=== PATIENT | female | born 1950 | race African-American/Black ===

== ENCOUNTER 2024-05-29 13:11 | Outpatient (CLI) | payer MEDICARE, MEDICAID, SELFPAY ==
--- NOTE | ~2024-05-29 | XR_ITS ---
EXAMINATION: XR lg joint inject/asp w image, XR lg joint inject/asp add DATE: 05/29/2024 14:34 INDICATION: Bilateral shoulder pain TECHNIQUE: A time-out was performed to verify the patient's name, date of , and procedure to b e performed. The procedure including the risks, benefits, and alternatives was discussed with the pat ient. Risks discussed included bleeding and infection. The patient understood the risks and agreed to proceed. Attention was first turned to the right glenohumeral joint. The skin overlying the rotator cuff interval of the right glenohumeral joint was prepped and draped in usual sterile fashion. Anest hetic was administered with 1% lidocaine subcutaneously. A 22 G needle was advanced under fluoroscop ic guidance into the joint. Injection of 1 mL of Omnipaque 240 confirmed intra-articular position of the needle. Subsequently, injectate consisting of 5 mm a 4:1 mixture of 1% lidocaine: 80 mg/mL Depo -Medrol for a total dosage of 80 mg Depo-Medrol was instilled. Washout of contrast was seen confirmin g intra-articular administration. The needle was removed and the entry site was cleaned and dressed. Attention was then turned to the left glenohumeral joint. The skin overlying the rotator cuff interva l of the left glenohumeral joint was prepped and draped in usual sterile fashion. Anesthetic was adm inistered with 1% lidocaine subcutaneously. A 22 G needle was advanced under fluoroscopic guidance i nto the joint. Injection of 1 mL of Omnipaque 240 confirmed intra-articular position of the needle. Subsequently, injectate consisting of 5 mm a 4:1 mixture of 1% lidocaine: 80 mg/mL Depo-Medrol for a total dosage of 80 mg Depo-Medrol was instilled. Washout of contrast was seen confirming intra-artic ular administration. The needle was removed and the entry site was cleaned and dressed. There were no immediate complications. Fluoroscopy exposure time for the combined procedures was 0.2 minutes. The total number of images was 4. Total DAP was 0.898 Gycm^2 FINDINGS: Real-time fluoroscopy demonstrates the needle and injected contrast initially in the right glenohumeral joint and subsequently in the left glenohumeral joint. Patient's pain prior to procedure :10/10. Patient's pain following the procedure: 0/10. IMPRESSION: 1. Successful left glenohumeral injection of local anesthetic and steroid with decrease in the patien t's presenting pain. 2. Successful right glenohumeral injection of local anesthetic and steroid with decrease in the patie nt's presenting pain. Reviewed, dictated and finalized at location A. IMPRESSION: 1. Successful left glenohumeral injection of local anesthetic and steroid with decrease in the patient's presenting pain. 2. Successful right glenohumeral injection of local anesthetic and steroid with decrease in the patient's presenting pain.
== END 2024-05-29 13:12 | disposition home or self-care (01) ==
PROVIDERS: Visit Provider Physician Assistant Surgical
DX: M25.511 Pain in right shoulder (principal); M25.512 Pain in left shoulder
CPT/HCPCS: 20610; 77002; J1010; Q9966

== ENCOUNTER 2024-09-29 08:50 | Outpatient (CLI) | payer MEDICARE, MEDICAID, SELFPAY ==
--- NOTE | ~2024-09-29 | XR_ITS ---
EXAMINATION: XR lg joint inject/asp w image DATE: 09/29/2024 11:01 INDICATION: Right shoulder osteoarthritis and pain. TECHNIQUE: A time-out was performed to verify the patient's name, date of , and procedure to b e performed. The procedure including the risks, benefits, and alternatives was discussed with the pat ient. Risks discussed included bleeding and infection. The patient understood the risks and agreed to proceed. The skin overlying the right glenohumeral joint was prepped and draped in usual sterile fa shion. Anesthetic was administered with 1% lidocaine subcutaneously. A 22 G needle was advanced und er fluoroscopic guidance into the joint. Subsequently, injectate consisting of 4 mL 1% lidocaine and 1 mL 80 mg/mL Depo-Medrol was instilled. The needle was removed and the entry site was cleaned and dressed. There were no immediate complications. Fluoroscopy exposure time was 0.0 minutes. The total number of images was 1. FINDINGS: Real-time fluoroscopy demonstrates the needle in the right glenohumeral joint. Patient's pa in prior to procedure:08/27. Patient's pain following the procedure: 11/27. IMPRESSION: 1. Fluoroscopy guided right glenohumeral joint injection of local anesthetic and steroid with decreas e in the patient's presenting pain. Reviewed, dictated and finalized at location A. ER SORTING MACHINE OPERATOR IMPRESSION: 1. Fluoroscopy guided right glenohumeral joint injection of local anesthetic an d steroid with decrease in the patient's presenting pain.
--- NOTE | ~2024-09-29 | XR_ITS ---
EXAMINATION: XR lg joint inject/asp add DATE: 09/29/2024 11:04 INDICATION: Left shoulder osteoarthritis and pain. TECHNIQUE: A time-out was performed to verify the patient's name, date of , and procedure to b e performed. The procedure including the risks, benefits, and alternatives was discussed with the pat ient. Risks discussed included bleeding and infection. The patient understood the risks and agreed to proceed. The skin overlying the left glenohumeral joint was prepped and draped in usual sterile fas hion. Anesthetic was administered with 1% lidocaine subcutaneously. A 22 G needle was advanced unde r fluoroscopic guidance into the joint. Subsequently, injectate consisting of 4 mL 1% lidocaine and 1 mL 80 mg/mL Depo-Medrol was instilled. The needle was removed and the entry site was cleaned and d ressed. There were no immediate complications. Fluoroscopy exposure time was 0.0 minutes. The total number of images was 1. FINDINGS: Real-time fluoroscopy demonstrates the needle in the left glenohumeral joint. Patient's conrado n prior to procedure:07/28. Patient's pain following the procedure: 11/27. IMPRESSION: 1. Fluoroscopy guided left glenohumeral joint injection of local anesthetic and steroid with decrease in the patient's presenting pain. Reviewed, dictated and finalized at location A. VERY HELPER
== END 2024-09-29 08:51 | disposition home or self-care (01) ==
PROVIDERS: Visit Provider Physician Assistant Surgical
DX: M19.011 Primary osteoarthritis, right shoulder (principal); M19.012 Primary osteoarthritis, left shoulder
CPT/HCPCS: 20610; 77002; J1010; J2003

== ENCOUNTER 2025-02-19 13:45 | Outpatient (CLI) | payer MEDICARE, MEDICAID, SELFPAY ==
--- NOTE | ~2025-02-19 | XR_ITS ---
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 The procedure including the risks, benefits, and alternatives was discussed with the pat ient. Risks discussed included bleeding and infection. The patient understood the risks and agreed to proceed. Attention was first turned to the left shoulder. The skin overlying the left glenohumeral j oint was prepped and draped in usual sterile fashion. Anesthetic was administered with 1% lidocaine subcutaneously. A 22 G needle was advanced under fluoroscopic guidance into the joint. Injection of 2 mL of Omnipaque 240 confirmed intra-articular position of the needle. Subsequently, injectate con sisting of 5 mm a 4:1 mixture of 1% lidocaine: 80 mg/mL Depo-Medrol for a total dosage of 80 mg Depo- Medrol was instilled. Washout of contrast was seen confirming intra-articular administration. The nee dle was removed and the entry site was cleaned and dressed. Attention was then turned to the right shoulder. The skin overlying the right glenohumeral joint was prepped and draped in usual sterile fashion. Anesthetic was administered with 1% lidocaine subcutane ously. A 22 G needle was advanced under fluoroscopic guidance into the joint. Injection of 2 mL of Omnipaque 240 confirmed intra-articular position of the needle. Subsequently, injectate consisting o f 5 mm a 4:1 mixture of 1% lidocaine: 80 mg/mL Depo-Medrol for a total dosage of 80 mg Depo-Medrol wa s instilled. Washout of contrast was seen confirming intra-articular administration. The needle was r emoved and the entry site was cleaned and dressed. There were no immediate complications. Fluoroscopy exposure time for both procedures was 0.9 minutes. The total number of images was 5. FINDINGS: Real-time fluoroscopy demonstrates the needle and contrast in the first the left glenohumer al joint and subsequently the right humeral joint. Patient's pain prior to procedure:10/10. Patient' s pain following the procedure: 5/10. IMPRESSION: 1. Successful left glenohumeral joint injection of local anesthetic and steroid with decrease in the patient's presenting pain. 2. Successful right glenohumeral joint injection of local anesthetic and steroid with decrease in the patient's presenting pain. Reviewed, dictated and finalized at location A. IMPRESSION: 1. Successful left glenohumeral joint injection of local anesthetic and steroid with decrease in the patient's presenting pain. 2. Successful right glenohumeral joint injection of local anesthetic and steroi d with decrease in the patient's presenting pain.
--- OUTSIDE RECORDS SUMMARY | 2025-02-19 13:53 | XMS_ITS | CONTINUITY OF CARE DOCUMENT ---
Author Name tigre landeros Address Unknown Organization [facility] Address [address] [place] [address] Phone [phone] Care Team Providers Care Production Sanitizer Name Role Phone Skylar Webber MD Unavailable [phone] Gadiel Vegas MD Unavailable Gadiel Vegas MD Unavailable [phone] PROBLEMS Condition Status Date Provider Notes Cardiology examination active Liz clark MD HYPERTENSION active Liz Mandujano MD CHF - diastolic active Liz Mandujano MD Preop cardiovasc. examination active Roberto Mandujano MD Shortness of breath active Liz Mandujano MD DYSPNEA ON EXERTION active Liz Mandujano MD Sleep apnea, obstructive active Lauryn montgomery HARDBOARD SUPERVISOR ENCOUNTERS Date Type Provider Location Encounter Diag nosis - In-person encounter Office Visit Liz Mandujano MD [facility] Sleep apnea, obstructive - In-person encounter Office Visit Liz Mandujano MD [facility] Shortness of breathDYSPNEA ON EXERTION - In-person encounter Office Visit Liz Mandujano MD [facility] Cardiology examinationHYPERTENSIONCHF - diastolicPreop cardiovasc. examination VITAL SIGNS Date Observation Value Provider Body Mass Index (Ratio) 45.83 kg/m2 Larry Mandujano MD blood pressure, diastolic 79 mm[Hg] Ri alda Blanton blood pressure, systolic 158 mm[Hg] Baldomero parveen Blanton blood pressure, cuff size large Ri alda Blanton oxygen saturation, oximetry 99 % Jany Blanton respiratory rate E&M 16 /min Gladis Blanton pulse rate 56 /min Jany Correia son weight E&M 267 [lb_av] Jany Correia son height E&M 64 [in_i] Jany Correia son Body Mass Index (Ratio) 45.31 kg/m2 Larry Mandujano MD blood pressure, diastolic 89 mm[Hg] Lara nkLogic blood pressure, systolic 229 mm[Hg] Penny kLogic blood pressure, cuff size large Ke rri Gruenenfelder blood pressure, diastolic 89 mm[Hg] Ke rri Gruenenfelder blood pressure, systolic 229 mm[Hg] Tomy ri Bober respiratory rate E&M 18 /min Vanessa G rafaer pulse rate 58 /min Vanessa Bernardoe lder weight E&M 264 [lb_av] Vanessa Virginianemichellee lder height E&M 64 [in_i] Vanessa Gruenenfe lder Body Mass Index (Ratio) 43.42 kg/m2 Larry Mandujano MD blood pressure, diastolic 105 mm[Hg] Li nkLogic blood pressure, systolic 199 mm[Hg] Penny kLogic blood pressure, diastolic 105 mm[Hg] Sa ra Larson blood pressure, systolic 199 mm[Hg] Kevin a Larson respiratory rate E&M 17 /min Mer Si ms pulse rate 64 /min Mre Larson weight E&M 253 [lb_av] Mer Larson height E&M 64 [in_i] Mer Larson blood pressure, cuff size regular Sa ra Larson ALLERGIES No Known Drug Allergies HISTORY OF MEDICATION USE Medication Status Instructions Dates Provider Indications Com ments Procardia XL 30 mg tablet extended release 24hr active 1 tablet by mouth once a day TAKE 1 TABLET BY MOUTH ONCE DAILY Lauryn Ventimiglia HARDBOARD SUPERVISOR olmesartan 40 mg tablet active TAKE 1 TABLET BY MOUTH EVERY DAY Liz Mandujano MD potassium chloride 20 mEq tablet extended release active Mer Larson duloxetine 30 mg capsule,delayed release(DR/EC) active Mer Kumars metoprolol tartrate 50 mg tablet active TAKE 1 TABLET BY MOUTH TWICE A DAY Liz Mandujano MD clonidine HCl 0.2 mg tablet active Take 1 tablet by mouth twice a day TAKE 1 TABLET BY MOUTH TWICE DAILY Liz Mandujano MD furosemide 40 mg tablet active Take 1 tablet by mouth once daily Liz Mandujano MD buspirone 10 mg tablet active Mer Kumars gabapentin 300 mg capsule active Mer Kumars SOCIAL HISTORY Date Observation Value Provider social history E&M S moking History: Jose E eller has never smoked. Liz Mandujano MD social history reviewed E&M revi ewed - no changes required Liz Mandujano MD drug use no Lauryn Ventimig christine [facility] alcohol use no Lauryn Ventimig christine [facility] smoking status Never smoker Jany Dain hurley social history E&M S moking History: Jose E eller has never smoked. Liz Manudjano MD social history reviewed E&M revi ewed - no changes required Liz Mandujano MD smoking status Never smoker Vanessa magdaleno social history reviewed E&M revi ewed - no changes required Liz Mandujano MD social history E&M S moking History: Jose E eller has never smoked. Liz Mandujano MD smoking status Never smoker Liz clark MD INSURANCE PROVIDERS Payer name Policy type / Coverage type Donal red constitution party ID [employer] Medicaid 1 [id number] [facility] COMPLETE CARE ST-[id number] (PPO C-SNP) Commercial insurance company [id number] ADVANCE DIRECTIVES Name Date DISCUSSED - NO DECISION MADE TREATMENT PLAN Date Name Performer [id number],C,R enal artery US reviewed C ONCLUSIONS: 1 . No evidence of renal artery stenosis bilaterally with very limited evaluation - technically difficult study due to patient body habitus. 2 . No evidence of an aneurysm of the abdominal aorta. E lectronically signed by Liz Mandujano MD on 09/03/2022 at 6:05 PM Lzi Mandujano MD [id number],S,C ompenstated. EF nml on recent echo. Will contnue present medication regimen. H er updated medication list for this problem includes: Procardia Xl 30 Mg Tablet Extended Release 24hr (Nifedipine) ..... 1 tablet by mouth once a day take 1 tablet by mouth once daily Metoprolol Tartrate 50 Mg Tablet (Metoprolol tartrate) ..... Take 1 tablet by mouth twice a day Olmesartan 40 Mg Tablet (Olmesartan) ..... Take 1 tablet by mouth every day Furosemide 40 Mg Tablet (Furosemide) ..... Take 1 tablet by mouth once daily Lauryn Martinez [facility] [id number],S,S milton per home sleep study. Will do titration study O rders: 9 9214 MOD 30-39min (CPT-74557) S leep Study Titration (CPT-57690) Lauryn Martinez [facility] [id number],B,B lood pressure better controlled and per patient reports better controlled at recent MD visit. Will continue present regimen. Her home sleep study showed sever RAMESH and this will be addressed to help with BP control. Renal US nml. Will f/u in 2 mos or sooner if needed H er updated medication list for this problem includes: Procardia Xl 30 Mg Tablet Extended Release 24hr (Nifedipine) ..... 1 tablet by mouth once a day take 1 tablet by mouth once daily Metoprolol Tartrate 50 Mg Tablet (Metoprolol tartrate) ..... Take 1 tablet by mouth twice a day Olmesartan 40 Mg Tablet (Olmesartan) ..... Take 1 tablet by mouth every day Clonidine Hcl 0.2 Mg Tablet (Clonidine hcl) ..... Take 1 tablet by mouth twice a day take 1 tablet by mouth twice daily Furosemide 40 Mg Tablet (Furosemide) ..... Take 1 tablet by mouth once daily Orders: 9 14 MOD 30-39min (CPT-35333) S [facility] Study Titration (CPT-20551) Lauryn Martinez HARDBOARD SUPERVISOR [id number],C,Check echo Sa rima Mandujano MD [id number],S,A dded Procardia XL 30mg resume RPM monitor she was not using at home O rders: E KG (CPT-48166) 9 9215 HIGH 40-54min (CPT-58855) C omplete Echo (CPT-20675) R enal Artery Duplex (CPT-85691) S [facility] Study Home (CPT-41767) R PM (remote patient monitoring) (89536) Her updated medication list for this problem includes: Metoprolol Tartrate 50 Mg Tablet (Metoprolol tartrate) ..... Take 1 tablet by mouth twice a day Olmesartan 40 Mg Tablet (Olmesartan) ..... Take 1 tablet by mouth every day Clonidine Hcl 0.2 Mg Tablet (Clonidine hcl) ..... Take 1 tablet by mouth twice a day take 1 tablet by mouth twice daily Furosemide 40 Mg Tablet (Furosemide) ..... Take 1 tablet by mouth once daily Procardia Xl 30 Mg Tablet Extended Release 24hr (Nifedipine) ..... Take 1 tablet by mouth once daily Liz Mandujano MD [id number],C,Check RAMESH wor kup and PFT Liz Mandujano MD [id number],S,C heck RAMESH and PFT suspect HTN underlying problem Liz Mandujano MD [id number],C,N eeds to get bilateral knee replacement with Dr. Gorman. Has already lost 100 pounds, needs to lose more weight. Uses a walker. Will have to get BP down into 130s range in order for her to be safe candidate for surgery. Liz Mandujano MD [id number],C,B Ps in 190s here. Will get her rpm monitor. Discussion of benefits for remote patient monitoring took place. Patient gives consent for remote monitoring of physiologic parameters including, but not limited to, weight, blood pressure, pulse oximetry, respiratory flow rate. Liz Mandujano MD Cardiology:Renal art rema US reviewed C ONCLUSIONS: 1 . No evidence of renal artery stenosis bilaterally with very limited evaluation - technically difficult study due to patient body h abitus. 2 . No evidence of an aneurysm of the abdominal aorta. E lectronically signed by Liz Mandujano MD on 09/03/2022 at 6:05 PM Liz Mandujano MD Cardiology:Compensta massiel. EF nml on recent echo. Will contnue present medication regimen. H er updated medication list for this problem includes: Procardia Xl 30 Mg Tablet Extended Release 24hr (Nifedipine) ..... 1 tablet by mouth once a day take 1 tablet by mouth once daily Metoprolol Tartrate 50 Mg Tablet (Metoprolol tartrate) ..... Take 1 tablet by mouth twice a day Olmesartan 40 Mg Tablet (Olmesartan) ..... Take 1 tablet by mouth every day Furosemide 40 Mg Tablet (Furosemide) ..... Take 1 tablet by mouth once daily Laurynlv Martinez [facility] Cardiology:Severe pe r home sleep study. Will do titration study O rders: 9 9214 MOD 30-39min (CPT-28257) S leep Study Titration (CPT-24142) Lauryn Martinez [facility] Cardiology:Blood pre ssure better controlled and per patient reports better controlled at recent MD visit. Will continue present regimen. Her home sleep study showed sever RAMESH and this will be addressed to help with BP control. Renal US nml. Will f/u in 2 mos or sooner if needed H er updated medication list for this problem includes: Procardia Xl 30 Mg Tablet Extended Release 24hr (Nifedipine) ..... 1 tablet by mouth once a day take 1 tablet by mouth once daily Metoprolol Tartrate 50 Mg Tablet (Metoprolol tartrate) ..... Take 1 tablet by mouth twice a day Olmesartan 40 Mg Tablet (Olmesartan) ..... Take 1 tablet by mouth every day Clonidine Hcl 0.2 Mg Tablet (Clonidine hcl) ..... Take 1 tablet by mouth twice a day take 1 tablet by mouth twice daily Furosemide 40 Mg Tablet (Furosemide) ..... Take 1 tablet by mouth once daily Orders: 9 9214 MOD 30-39min (CPT-39350) S [facility] Study Titration (CPT-43373) Lauryn Martinez [facility] Cardiology:Check echo Liz Mandujano MD Cardiology:Added Pro cardia XL 30mg resume RPM monitor she was not using at home O rders: E KG (CPT-88209) 9 9215 HIGH 40-54min (CPT-55742) C omplete Echo (CPT-53356) R enal Artery Duplex (CPT-27796) S [facility] Study Home (CPT-38896) R PM (remote patient monitoring) (44391) Her updated medication list for this problem includes: Metoprolol Tartrate 50 Mg Tablet (Metoprolol tartrate) ..... Take 1 tablet by mouth twice a day Olmesartan 40 Mg Tablet (Olmesartan) ..... Take 1 tablet by mouth every day Clonidine Hcl 0.2 Mg Tablet (Clonidine hcl) ..... Take 1 tablet by mouth twice a day take 1 tablet by mouth twice daily Furosemide 40 Mg Tablet (Furosemide) ..... Take 1 tablet by mouth once daily Procardia Xl 30 Mg Tablet Extended Release 24hr (Nifedipine) ..... Take 1 tablet by mouth once daily Liz Mandujano MD Cardiology:Check RAMESH workup and PFT Liz Mandujano MD Cardiology:Check RAMESH and PFT suspect HTN underlying problem Liz Mandujano MD Cardiology:Needs to get bilateral knee replacement with Dr. Gorman. Has already lost 100 pounds, needs to lose more weight. Uses a walker. Will have to get BP down into 130s range in order for her to be safe candidate for surgery. Liz Mandujano MD Cardiology:BPs in 19 0s here. Will get her rpm monitor. Discussion of benefits for remote patient monitoring took place. Patient gives consent for remote monitoring of physiologic parameters including, but not limited to, weight, blood pressure, pulse oximetry, respiratory flow rate. Liz Mandujano MD Date Name Sleep Study Titratio n RPM (remote patient monitoring) Sleep Study Home Renal Artery Duplex Complete Echo Sleep Study Home RPM (remote patient monitoring) HISTORY OF PROCEDURES Procedure Date Procedure Name Provider Procedure Notes S tatus EKG Liz Mandujano MD compl eted EKG Liz Mandujano MD compl eted EKG Liz Mandujano MD compl eted
--- OUTSIDE RECORDS SUMMARY | 2025-02-19 13:53 | XMS_ITS | Clinical Summary ---
Author Organization [facility] Facility Address [address] [place] [id number] Care Team Providers Care Straight Cutter Machine Name Role Phone Kristy De Los Santos Primary Care Provider [phone] Allergies No known active allergies Medications busPIRone (BUSPAR) 10 MG tablet Take 10 mg by mouth in the morning and 10 mg in the evening and 10 mg before bedtime. Active cloNIDine (CATAPRES) 0.2 MG tablet Take 0.2 mg by mouth in the morning and 0.2 mg in the evening. Active DULoxetine (CYMBALTA) [address] capsule Take 30 mg by mouth 1 (one) time each day Do not crush or chew. Active furosemide (LASIX) 40 MG tablet Take 40 mg by mouth in the morning and 40 mg in the evening. Active gabapentin (NEURONTIN) 300 MG capsule Take 300 mg by mouth in the morning and 300 mg in the evening and 300 mg before bedtime. Active HYDROcodone-camryn taminophen (LORCET PLUS) 10-325 MG per tablet Take 1 tablet by mouth every 6 (six) hours if needed for moderate pain Active metoprolol tartrate (LOPRESSOR) 50 MG tablet Take 50 mg by mouth in the morning and 50 mg in the evening. Active NIFEdipine CC (ADALAT CC) 30 MG 24 hr tablet Take 30 mg by mouth 1 (one) time each day before breakfast Do not crush, chew, or split. Active olmesartan (BENICAR) 40 MG tablet Take 40 mg by mouth 1 (one) time each day Active oxybutynin XL (DITROPAN-XL) 10 MG 24 hr tablet Take 10 mg by mouth 1 (one) time each day Do not crush, chew, or split. Active potassium chloride (KLOR-CON M20) 20 MEQ CR tablet Take 20 mEq by mouth 1 (one) time each day Do not crush or chew. Active Cholecalciferol (Vitamin D3) 50 MCG (1999) tablet Take by mouth Active Active Problems Problem Noted Date Diagnosed Date Congestive heart failure 09/09/2023 Essential hypertension 09/09/2023 Stage 3a chronic kidney disease 09/09/2023 Vitamin D deficiency 09/09/2023 Social History Tobacco Use Types Packs/Day Years Used Date Smoking Tobacco: Never Smokeless Tobacco: Never Tobacco Cessation:Counseling Given: Not Answered Comments Unknown Sex and Gender Information Value Date Recorded Sex Assigned at Not on file Legal Sex Female 2:49 PM EDT Gender Identity Not on file Sexual Orientation Not on file Plan of Treatment Health Maintenance Due Date Last Done Comments Breast Cancer Screening 1950 Pneumococcal Vaccine: 65+ Ye ars (1 of 2 - PCV) 1955 Colorectal Cancer Screening: Annual FOBT 1998 Colorectal Cancer Screening: Colonoscopy 1998 Colorectal Cancer Screening: Sigmoidoscopy 1998 Influenza Vaccine (Season Ended) 2025 Hepatitis B Vaccine Aged Out No longe r eligible based on patient's age to complete this topic Insurance HUM[employer] Care Teams Straight Cutter Machine Relationship Specialty Start Date End Date Kristy De Los Santos [address] [place] [address] PCP - General 06/07/23
--- OUTSIDE RECORDS SUMMARY | 2025-02-19 13:53 | XMS_ITS | Clinical Summary ---
Author Organization [email or web address] Address [address] [place] [address] Care Team Providers Care Digital Account Director Name Role Phone Gadiel Vegas MD Primary Care Provider [phone] [email or web address],non-owned Affiliates and Associated Physician Practices is amultiple site organization consisting of ambulatory clinics and hospital sitesin [place], [place], [place] and [place]. This disclosure is being madepursuant to the Care Everywhere program and may not contain all information available regarding this patient. Last updated 18.[email or web address] Allergies No known active allergies Medications * Be aware that medications may not be up to date on this document. Alwaysverify current medications with the patient. 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 Social History Tobacco Use Types Packs/Day Years Used Date Smoking Tobacco: Never Smokeless Tobacco: Never Alcohol Use Standard Drinks/Week Comments No 0 (1 standard drink = 0.6 oz pur e alcohol) Sex and Gender Information Value Date Recorded Sex Assigned at Not on file Gender Identity Not on file Sexual Orientation Not on file Last Filed Vital Signs Vital Sign Reading Time Taken Comments Blood Pressure 170/79 08/19/2017 9:57 AM CDT Pulse 78 08/19/2017 9:57 AM CDT Temperature 36.5 C (97.7 F) 08/19/2017 9:57 AM CDT Respiratory Rate 18 08/14/2017 8:00 AM CDT Oxygen Saturation 100% 08/14/2017 8:00 AM CDT Inhaled Oxygen Concentration - - Weight 152.2 kg (335 lb 9.6 oz) 09/11/2017 9:24 AM CDT Height 160 cm (5' 3 ) 09/11/2017 9:24 AM CDT Body Mass Index 59.45 09/11/2017 9:24 AM CDT Plan of Treatment Health Maintenance Due Date Last Done Comments BONE DENSITY TESTING 1950 COLOGUARD (AGES 45-75) - COLON CA SCREENING 1949 CT COLONOGRAPHY - COLON CA SCREENING 1949 FIT - COLON CA SCREENING 1949 FLEX SIG - COLON CA SCREENING 1949 LIPID TESTING 1950 MAMMOGRAM 1950 MEDICARE AWV 12 MONTHS 1949 HEPATITIS C SCREENING 07/03/1967 DTAP/TDAP/TD VACCINES (1 - Tdap) 1968 PNEUMOCOCCAL VACCINE 50+ (1 of 1 - PCV) 1999 ZOSTER VACCINE (1 of 2) 1999 SCREENING FOR DIABETES 08/14/2020 7, 08/14/2017, 08/13/2017, Additional history exists Respiratory Syncytial Virus (RSV) Vaccine Pt: or over 60 yrs (1 - 1-dose 75+ series) 2024 COVID-19 VACCINE (1 - 2023- season) 2024 INFLUENZA VACCINE (#1) 2024 DEPRESSION SCREENING 11/18/2024 COLON MONITORING 06/27/2025 06/27/2015 COLONOSCOPY - COLON CA SCREENING 06/27/2025 06/27/2015 Colorectal Cancer Screening 06/27/2025 HEPATITIS B VACCINE Aged Out No longe r eligible based on patient's age to complete this topic HIB VACCINE Aged Out No longer eligi ble based on patient's age to complete this topic HPV VACCINE Aged Out No longer eligi ble based on patient's age to complete this topic MENINGOCOCCAL (Group B) VACCINE SHARED DECISION-MAKING Aged Out No longer eligible based on patient's age to complete this topic MENINGOCOCCAL GROUPS A/C/Y/W VACCINE Aged Out No longer eligible based on patient's age to complete this topic Procedures Procedure Name Priority Date/Time Associated Diagnosis Comments BASIC METABOLIC PANEL (CALCIUM TOTAL) AM Draw 08/14/2017 3:20 AM CDT COLONOSCOPY Routine 06/27/2015 from Last 3 Months or Most Recently Relevant to Health Maintenance Results * (ABNORMAL) BASIC METABOLIC PANEL (CALCIUM TOTAL) (08/14/2017 3:20 AM CDT) Glucose 93 74 - 106 mg/dL 08/14/2017 4:46 AM CDT [facility] Sodium 141 136 - 145 mmol/L 08/14/2017 4:46 AM CDT [facility] Potassium 4.1 3.5 - 5.1 mmol/L 08/14/2017 4:46 AM CDT [facility] Chloride 111(H) 98 - 107 mmol/L 08/14/2017 4:46 AM CDT [facility] CO2 23 22 - 31 mmol/L 08/14/2017 4:46 AM CDT [facility] Calcium 8.8 8.5 - 10.1 mg/dL 08/14/2017 4:46 AM CDT [facility] Anion Gap 7(L) 8 - 16 mmol/L 08/14/2017 4:46 AM CDT [facility] BUN 19 7 - 21 mg/dL 08/14/2017 4:46 AM CDT [facility] Creatinine 1.00 0.50 - 1.30 mg/dL 08/14/2017 4:46 AM CDT [facility] eGFR by MDRD 55(L) >60 mL/min/1.7 3m2 08/14/2017 4:46 AM CDT [facility] eGFR by MDRD >60 >60 mL/min/1.7 3m2 08/14/2017 4:46 AM CDT [facility] Blood BLOOD SPECIMEN / Unknown Venipuncture / Unknown 08/14/2017 3:20 AM CDT 08/14/2017 4:02 AM CDT Delmy Squires [employer] [facility] - CHEMIS TRY ORDERABLES [facility] [address] [place] [address] * COLONOSCOPY (06/27/2015) Rey El MD GENERIC SURGICAL HIS TORY from Last 3 Months or Most Recently Relevant to Health Maintenance Advance Directives * Full Code (Latest Code Status on File) Date Activated Date Inactivated Comments 08/12/2017 7:56 PM 08/14/2017 10:59 AM Care Teams Digital Account Director Relationship Specialty Start Date End Date Gadiel Vegas MD [address] [facility] [place] [id number] PCP - General Internal Medicine 03/27/17
--- OUTSIDE RECORDS SUMMARY | 2025-02-19 13:53 | XMS_ITS ---
Author Name Erica Wong Address [address] [address] [facility], Address [address] [address] Care Team Providers Care Plane Captain Name Role Phone Erica Wong Primary Care Physician Unavailab le Erica Wong Preferred Provider Unavailable Allergies and Adverse Reactions Name Reaction Notes NO KNOWN DRUG ALLERGIES Plan of Treatment Planned Activity Comments Planned Date Planned Time Plan /Goal Screening mammography of bot h breasts, two views 06/19/2024 12:00 AM ADE w/ creatinine 11/20/2022 12:00 AM ADE w/ creatinine 11/20/2022 12:00 AM Screening mammography of bot h breasts, two views 06/07/2023 12:00 AM Medications Active Name Start Date Estimated Comple tion Date SIG Comments Vitamin D3 50 mcg (2,000 unit) tablet take 1 tablet by ora l route daily busPIRone 10 mg tablet 05/19/2024 08/12/2025 TAKE 1 TABLET BY MOUTH TWICE A DAY NEEDED Metoprolol Tartrate 50 mg tablet 05/20/2024 08/13/2025 TAKE 1 TABLET BY MOUTH TWICE A DAY oxyBUTYnin 10 mg/24 hr tablet, extended release 06/08/2024 09/01/2025 TAKE 1 TABLET BY MOUTH EVERY DAY Gabapentin 300 mg capsule 06/19/2024 03/16/2025 Take 1 pill in the morning, 1 pill in the afternoon and 1 pill in the evening. NIFEdipine 30 mg tablet, extended release 06/19/2024 06/14/2025 Take 1 pill in the morning. Furosemide 40 mg tablet 06/19/2024 06/14/2025 TAKE 1 TABLET BY MOUTH EVERY DAY Potassium Chloride 20 mEq tablet, extended release 06/19/2024 06/14/2025 1 tab once a day DULoxetine 30 mg delayed release capsule 06/19/2024 06/14/2025 TAKE 1 CAPSULE BY MOUTH EVERY DAY Olmesartan 40 mg tablet 07/24/2024 07/19/2025 Take 1 pill in the morning. cloNIDine 0.2 mg tablet 12/21/2024 03/16/2026 TAKE 1 TABLET BY MOUTH IN THE MORNING AND 1 TABLET AT BEDTIME Hydrocodone-Acetaminop hen 10 mg-325 mg tablet 01/28/2025 02/27/2025 take 1 tablet by ora l route every 6 hours as needed for pain for 30 days (Max 3 tablets daily) Name Start Date Expiration Date SIG Comments potassium chloride ER 20 mEq tablet,extended release N/A olmesartan 40 mg tablet take 1 tablet (40 mg) by oral route once daily N/A duloxetine 30 mg capsule,delayed release take 1 capsule ( 30 mg) by oral route once daily N/A clonidine HCl 0.2 mg tablet 11/21/2022 03/21/2023 take 1 tablet by ora l route daily for 30 days N/A nifedipine ER 30 mg tablet,extended release 24 hr 11/21/2022 11/16/2023 take 1 tablet (30 mg ) by oral route once daily for 90 days Duplicate oxybutynin chloride ER 10 mg tablet,extended release 24 hr 11/21/2022 03/21/2023 take 1 tablet (10 mg ) by oral route once daily for 30 days N/A penicillin V potassium 500 mg tablet 03/07/2023 03/17/2023 1 tab twice a day NIFEDIPINE ER 30 MG Tablet Extended Release 24 Hour 12/03/2023 02/25/2025 TAKE 1 TABLET EVERY DAY N/A Zithromax Z-Saul Oral Tablet 250 MG 01/15/2025 01/20/2025 take as pack prescribed Benzonatate Oral Capsule 100 MG 01/25/2025 02/04/2025 Take 1 pill in the morning, 1 pill in the afternoon and 1 pill in the evening as needed for cough. Cephalexin Oral Capsule 250 MG 01/27/2025 02/01/2025 Take 1 pill in the morning, 1 pill in the afternoon, 1 pill in the evening and 1 pill at bedtime. Discontinued Name Start Date Discontinued Date SIG Comment s Vitamin D2 1,250 mcg (50,000 unit) capsule 01/31/2023 1 cap weekly Medrol (Saul) 4 mg tablets in a dose pack 11/20/2022 01/31/2023 take by oral route as directed per package instructions for 6 days hydrocodone 10 mg-acetaminophen 325 mg tablet 12/21/2022 01/31/2023 take 1 tablet by oral route every 6 hours as needed for pain for 30 days (Max 3 tablets daily) amoxicillin 875 mg-potassium clavulanate 125 mg tablet 01/31/2023 03/07/2023 take 1 tablet by oral route every 12 hours for 7 days d/c Wegovy (0.25 mg dose) 0.25 mg/0.5 mL (0.25 mg dose) solution 03/07/2023 06/07/2023 0.25 mg once a week d/c Ozempic 2 mg/1.5 mL (0.25 mg or 0.5 mg dose) solution 05/09/2023 06/07/2023 inject 0.25 mg by subcutaneous route once a week for 4 weeks then increase to 0.5 mg weekly. d/c med Ozempic 2 mg/3 mL (0.25 mg or 0.5 mg dose) solution 05/09/2023 06/07/2023 inject 0.25 mg by subcutaneous route once a week for 4 weeks then increase to 0.5 mg weekly. 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 current use of opiate analgesic Active 01/31/2023 Vitamin D deficiency Active 01/31/2023 Tooth pain Active 01/31/2023 Nonsmoker Active 01/31/2023 Nonsmoker Active 01/31/2023 Bladder incontinence Active 01/31/2023 Fall, subsequent encounter Active 2022 Strep throat Active 03/07/2023 Class 3 severe obesity due t o excess calories with serious comorbidity and body mass index (BMI) of 45.0 to 49.9 in adult Active 05/08/2023 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 016 in 45.5 08 kg/m 2 2.33 12 m2 2023 8:54: 00 AM 146 mm[Hg] 78 mm[Hg] 73 {beats}/ min 18 rpm 98.49 2 F 275 .37 9 lbs 64. 016 in 47.2 5 kg/m 2 2.38 m2 96 % 09/06 1:46: 00 PM 152 mm[Hg] 70 mm[Hg] 68 {beats}/ min 18 rpm 97.89 8 F 259 .37 9 lbs 64. 016 in 44.5 kg/m 2 2.30 52 m2 2022 9:47: 00 AM 110 mm[Hg] 65 mm[Hg] 49 {beats}/ min 52 rpm 98.49 2 F 266 .25 4 lbs 64. 016 in 45.6 8 kg/m 2 2.34 m2 98 % 2022 9:47: 00 AM 110 mm[Hg] 65 mm[Hg] 49 {beats}/ min 52 rpm 98.49 2 F 266 .25 4 lbs 64. 016 in 45.6 8 kg/m 2 2.34 m2 98 % 2022 8:57: 00 AM 104 mm[Hg] 59 mm[Hg] 49 {beats}/ min 18 rpm 98.20 4 F 269 .12 9 lbs 64. 016 in 46.1 728 kg/m 2 2.34 81 m2 2022 8:57: 00 AM 104 mm[Hg] 59 mm[Hg] 49 {beats}/ min 18 rpm 98.20 4 F 269 .12 9 lbs 64. 016 in 46.1 728 kg/m 2 2.34 81 m2 2022 9:14: 00 AM 128 mm[Hg] 79 mm[Hg] 57 {beats}/ min 18 rpm 98.09 6 F 260 .00 4 lbs 64. 016 in 44.6 1 kg/m 2 2.31 m2 98 % 2022 9:12: 00 AM 138 mm[Hg] 80 mm[Hg] 69 {beats}/ min 18 rpm 97.59 2 F 266 .00 4 lbs 64. 016 in 45.6 4 kg/m 2 2.33 m2 98 % 2022 11:03 :00 AM 152 mm[Hg] 86 mm[Hg] 90 {beats}/ min 20 rpm 98.09 6 F 276 .00 4 lbs 64. 016 in 47.3 523 kg/m 2 2.37 79 m2 023 1:50: 00 PM 132 mm[Hg] 71 mm[Hg] 63 {beats}/ min 18 rpm 98.40 2 F 252 .25 4 lbs 64. 016 in 43.2 8 kg/m 2 2.27 m2 98 % 10/29 11:48 :00 AM 165 mm[Hg] 76 mm[Hg] 74 {beats}/ min 16 rpm 98.00 6 F 271 .00 4 lbs 64. 016 in 46.4 945 kg/m 2 2.35 63 m2 98 % Social History Name Description Comments Marital Status: Work: Disability Education: Some Ambulatory Status: Walker Lives Alone Ambulatory Status: Cane Denies alcohol consumption Nonsmoker Nonsmoker History of Procedures Date Ordered Description Order Status 12/18/2023 12:00 AM ASSAY OF PARATHORMONE Returne d 12/18/2023 12:00 AM COMPREHEN METABOLIC PANEL Ret urned 12/18/2023 12:00 AM VITAMIN D 25 HYDROXY Returned 12/18/2023 12:00 AM MICROALBUMIN QUANTITATIVE Ret urned 12/18/2023 12:00 AM ASSAY OF URINE CREATININE Ret urned 12/18/2023 12:00 AM LIPID PANEL Returned 12/18/2023 12:00 AM ASSAY THYROID STIM HORMONE Re turned 12/18/2023 12:00 AM COMPLETE CBC W/AUTO DIFF WBC Returned 12/18/2023 12:00 AM HEPATITIS C AB TEST Returned 12/18/2023 9:50 AM GLYCOSYLATED HEMOGLOBIN TEST R eviewed 12/18/2023 10:09 AM UDS (in clinic) Reviewed 12/18/2023 12:00 AM Annual Visit (G0439) Reviewed 06/19/2024 12:00 AM ACUTE HEPATITIS PANEL Returned 06/19/2024 12:00 AM External electrocard iographic recording for more than 7 days, In-Center Only Returned 10/29/2022 12:20 PM GLYCOSYLATED HEMOGLOBIN TEST Reviewed 11/20/2022 12:00 AM ASSAY OF NATRIURETIC PEPTIDE R eturned 11/20/2022 12:00 AM ASSAY OF PARATHORMONE Returned 11/20/2022 12:00 AM COMPLETE CBC AUTOMATED Returne d 11/20/2022 12:00 AM COMPREHEN METABOLIC PANEL Retu rned 11/20/2022 12:00 AM VITAMIN D 25 HYDROXY Returned 11/20/2022 12:00 AM LIPID PANEL Returned 11/20/2022 12:00 AM ASSAY THYROID STIM HORMONE Ret urned 11/20/2022 12:00 AM VITAMIN B-12 Returned 11/20/2022 2:36 PM UPR/L XTREMITY ART 2 LEVELS Ret urned 11/20/2022 12:00 AM Annual Visit (G0439) Reviewed 11/20/2022 12:00 AM Prevnar (Administration - [facility] care) Reviewed 11/20/2022 12:00 AM Pneumococcal 20-Thuy nt Conjugate Vaccine, Suspension for Intramuscular Injection Reviewed 12/31/2022 12:00 AM CHRON CARE MGMT SRVC 20 MIN R eviewed 01/31/2023 12:00 AM VITAMIN D 25 HYDROXY Returned 01/31/2023 12:00 AM COMPREHEN METABOLIC PANEL Ret urned 01/31/2023 12:00 AM GLYCOSYLATED HEMOGLOBIN TEST Returned 01/31/2023 12:00 AM CHRON CARE MGMT SRVC 20 MIN R eviewed 05/08/2023 10:08 AM UDS (in clinic) Reviewed 06/07/2023 12:00 AM COMPREHEN METABOLIC PANEL Ret urned 06/17/2023 12:00 AM COMPREHEN METABOLIC PANEL Ret urned Results Summary Date and Description Results 05/07/2022 12:00 AM DEXA: Result: Normal Mammogram: Result: BI-RADS 1 08/29/2022 12:00 AM Echocardiogram: Norm al EFLVEF % 50-70% 10/29/2022 12:00 PM BP Monitor @home Yes 10/29/2022 12:06 PM AUDIT - C 0Marijuana Use 0Drug Use/Rx Abuse 0 10/29/2022 12:06 PM PHQ-2 1 10/29/2022 12:08 PM Mini - Cog 5 10/29/2022 12:14 PM Hgb A1c Fr Bld 6.10 % 10/29/2022 12:20 PM Hemoglobin A1c 6.10 % 11/20/2022 1:51 PM Pain Scale 10 11/20/2022 1:51 PM SDOH - Housing Ekta rns NoSDOH - Food Access Concerns (Run Out of Food Now) NoSDOH - Food Access Concerns (Ran Out of Food in Last 2 Months) NoSDOH - Medication Assistance NoSDOH - Health Literacy NoSDOH - Loneliness Score 3 11/20/2022 1:53 PM PHQ-9 3 11/20/2022 1:55 PM VES - 13 7 11/20/2022 2:36 PM QuantaFlo Right 0.88 0 UnitsQuantaflo Left 0.990 Units 11/20/2022 3:40 PM CHOLESTEROL, TOTAL 1 72.0 mg/dLHDL CHOLESTEROL 58.0 mg/dLTRIGLYCERIDES 83.0 mg/dLLDL-CHOLESTEROL 97.0 mg/dLCHOL/HDLC RATIO 3.0 RatioNON HDL CHOLESTEROL 114.0 mg/dLGLUCOSE 95.0 mg/dLUREA NITROGEN (BUN) 29.0 mg/dLCREATININE 1.370 mg/dLEGFR 41.0 mL/min/1.73m BUN/CREATININE RATIO 21.0 (calc)SODIUM 146.0 mmol/LPOTASSIUM 5.10 mmol/LCHLORIDE 113.0 mmol/LCARBON DIOXIDE 22.0 mmol/LCALCIUM 9.60 mg/dLPROTEIN, TOTAL 7.10 g/dLALBUMIN 4.0 g/dLGLOBULIN 3.10 g/dLALBUMIN/GLOBULIN RATIO 1.30 (calc)BILIRUBIN, TOTAL 0.40 mg/dLALKALINE PHOSPHATASE 86 U/LAST 15 U/LALT 9 U/LWHITE BLOOD CELL COUNT 7.20 x10E3/uLRED BLOOD CELL COUNT 4.680 x10E6/uLHEMOGLOBIN 12.70 g/dLHEMATOCRIT 40.40 %MCV 86.30 fLMCH 27.10 pgMCHC 31.40 g/dLRDW 15.0 %PLATELET COUNT 178.0 x10E3/uLMPV 13.50 fLTSH 1.87VITAMIN B12 351.0 pg/mLPARATHYROID HORMONE, INTACT 67.0 pg/mLB TYPE NATRIURETIC PEPTIDE (BNP) 78.0 pg/mLVITAMIN D,25-OH,TOTAL,IA 32.0 ng/mL 01/31/2023 9:24 AM BP Monitor @home Yes 01/31/2023 9:25 AM PHQ-2 0 01/31/2023 11:22 AM GLUCOSE 90.0 mg/dLUR EA NITROGEN (BUN) 33.0 mg/dLCREATININE 1.270 mg/dLEGFR 45.0 mL/min/1.73m BUN/CREATININE RATIO 26.0 (calc)SODIUM 140.0 mmol/LPOTASSIUM 4.90 mmol/LCHLORIDE 108.0 mmol/LCARBON DIOXIDE 23.0 mmol/LCALCIUM 9.40 mg/dLPROTEIN, TOTAL 6.90 g/dLALBUMIN 3.70 g/dLGLOBULIN 3.20 g/dLALBUMIN/GLOBULIN RATIO 1.20 (calc)BILIRUBIN, TOTAL 0.40 mg/dLALKALINE PHOSPHATASE 76 U/LAST 12 U/LALT 7 U/LVITAMIN D,25-OH,TOTAL,IA 41.0 ng/mLHEMOGLOBIN A1c 5.70 % 03/07/2023 9:18 AM SDOH - Housing Ekta rns NoSDOH - Food Access Concerns (Run Out of Food Now) YesSDOH - Food Access Concerns (Ran Out of Food in Last 2 Months) NoSDOH - Medication Assistance NoSDOH - Health Literacy NoSDOH - Loneliness Score 3 05/08/2023 9:02 AM BP Monitor @home Yes 05/08/2023 9:11 AM AUDIT - C 0Marijuana Use 0Drug Use/Rx Abuse 0 05/08/2023 9:12 AM Influenza: Declined 05/08/2023 9:18 AM Mini - Cog 0SLUMS: 2 1 05/08/2023 9:27 AM Mini - Cog 0SLUMS: 2 1 05/08/2023 10:08 AM Phencyclidine (PCP) NEGATIVEBARBITURATES (BAR) NEGATIVEOXYCODONE (SCREEN) NEGATIVETricyclic antidepressants (TCA) NEGATIVEMARIJUANA METABOLITES NEGATIVEMethamphetamine NEGATIVEAmphetamine (AMP/MET) NEGATIVEBenzodiazepines (BZO) NEGATIVEBUPRENORPHINE (BUP) NEGATIVECOCAINE METABOLITES NEGATIVEMDMA NEGATIVEMETHADONE (MTD) NEGATIVEOPIATES (OPI/MOP POSITIVE 06/07/2023 9:52 AM SDOH - Housing Ekta rns NoSDOH - Food Access Concerns (Run Out of Food Now) YesSDOH - Food Access Concerns (Ran Out of Food in Last 2 Months) YesSDOH - Medication Assistance NoSDOH - Health Literacy NoSDOH - Loneliness Score 3 06/07/2023 9:53 AM Influenza: Declined 06/07/2023 9:56 AM BP Monitor @home Yes 06/07/2023 9:57 AM BP Monitor @home Yes 06/07/2023 5:13 PM GLUCOSE 72.0 mg/dLUR EA NITROGEN (BUN) 27.0 mg/dLCREATININE 1.580 mg/dLEGFR 34.0 mL/min/1.73m BUN/CREATININE RATIO 17.0 (calc)SODIUM 139.0 mmol/LPOTASSIUM 5.50 mmol/LCHLORIDE 106.0 mmol/LCARBON DIOXIDE 21.0 mmol/LCALCIUM 9.0 mg/dLPROTEIN, TOTAL 6.70 g/dLALBUMIN 3.80 g/dLGLOBULIN 2.90 g/dLALBUMIN/GLOBULIN RATIO 1.30 (calc)BILIRUBIN, TOTAL 0.40 mg/dLALKALINE PHOSPHATASE 76 U/LAST 12 U/LALT 6 U/L 06/18/2023 8:33 AM GLUCOSE 84.0 mg/dLUR EA NITROGEN (BUN) 39.0 mg/dLCREATININE 1.490 mg/dLEGFR 37.0 mL/min/1.73m BUN/CREATININE RATIO 26.0 (calc)SODIUM 137.0 mmol/LPOTASSIUM 4.80 mmol/LCHLORIDE 106.0 mmol/LCARBON DIOXIDE 20.0 mmol/LCALCIUM 9.20 mg/dLPROTEIN, TOTAL 7.0 g/dLALBUMIN 4.10 g/dLGLOBULIN 2.90 g/dLALBUMIN/GLOBULIN RATIO 1.40 (calc)BILIRUBIN, TOTAL 0.40 mg/dLALKALINE PHOSPHATASE 93 U/LAST 14 U/LALT 8 U/L 09/06/2023 2:01 PM SDOH - Housing Ekta rns NoSDOH - Food Access Concerns (Run Out of Food Now) YesSDOH - Food Access Concerns (Ran Out of Food in Last 2 Months) YesSDOH - Medication Assistance NoSDOH - Health Literacy NoSDOH - Loneliness Score 6 11/22/2023 9:30 AM Amphetamines Bld Ql Scn negativeBarbiturates Tested Ur Scn negativeAmphetamines Ur Ql negativeBenzodiaz Tested Ur Scn negativeBuprenorphine Ur Ql negativeBZE Ur Ql negativeTHC Ur Ql negativeMDMA Ur Ql Scn negativeMethadone Ur-sCnc negativeOpiates Tested Ur Scn negativeOxycodone Ur Ql Scn negativePCP Ur Scn-mCnc negativeTricyclics Tested Ur Scn negative 11/22/2023 9:31 AM Bilirub Ur Ql Strip negGlucose Ur-sCnc negHgb Ur Ql Strip negKetones Ur Ql Strip negNitrite Ur Ql Strip negpH Ur-LsCnc 6.0Prot Ur Ql Strip +- 15 mg/dLSp Gr Ur Qn 1.025Urobilinogen Ur-mCnc 0.2 mg/dLWBC Est Ur Ql Strip negWBC # Ur negUrine Glucose (in-clinic) neg mg/dL 12/18/2023 9:23 AM Pain Scale 8 12/18/2023 9:24 AM VES - 13 7 12/18/2023 9:24 AM VES - 13 7 12/18/2023 9:24 AM PHQ-2 1 12/18/2023 9:25 AM PHQ-9 1 12/18/2023 9:25 AM AUDIT - C 0Marijuana Use 0Drug Use/Rx Abuse 0 12/18/2023 9:28 AM Mini - Cog 0SLUMS: 2 5 12/18/2023 9:33 AM BP Monitor @home Yes 12/18/2023 9:50 AM Hemoglobin A1c 5.90 % 12/18/2023 10:09 AM Phencyclidine (PCP) NEGATIVEBARBITURATES (BAR) NEGATIVEOXYCODONE (SCREEN) POSITIVETricyclic antidepressants (TCA) NEGATIVEMARIJUANA METABOLITES NEGATIVEMethamphetamine NEGATIVEAmphetamine (AMP/MET) NEGATIVEBenzodiazepines (BZO) NEGATIVEBUPRENORPHINE (BUP) NEGATIVECOCAINE METABOLITES NEGATIVEMDMA NEGATIVEMETHADONE (MTD) NEGATIVEOPIATES (OPI/MOP POSITIVE 12/18/2023 1:12 PM CHOLESTEROL, TOTAL 1 76.0 mg/dLHDL CHOLESTEROL 66.0 mg/dLTRIGLYCERIDES 103.0 mg/dLLDL-CHOLESTEROL 90.0 mg/dLCHOL/HDLC RATIO 2.70 RatioNON HDL CHOLESTEROL 110.0 mg/dLGLUCOSE 93.0 mg/dLUREA NITROGEN (BUN) 24.0 mg/dLCREATININE 1.190 mg/dLEGFR 48.0 mL/min/1.73m BUN/CREATININE RATIO 20.0 (calc)SODIUM 140.0 mmol/LPOTASSIUM 4.30 mmol/LCHLORIDE 103.0 mmol/LCARBON DIOXIDE 24.0 mmol/LCALCIUM 9.40 mg/dLPROTEIN, TOTAL 7.60 g/dLALBUMIN 4.10 g/dLGLOBULIN 3.50 g/dLALBUMIN/GLOBULIN RATIO 1.20 (calc)BILIRUBIN, TOTAL 0.40 mg/dLALKALINE PHOSPHATASE 90 U/LAST 16 U/LALT 9 U/LCREATININE, RANDOM URINE 1.520 mg/mLALBUMIN, URINE 2.6ALBUMIN/CREATININE RATIO, RANDOM URINE 17WHITE BLOOD CELL COUNT 7.90 x10E3/uLRED BLOOD CELL COUNT 4.640 x10E6/uLHEMOGLOBIN 12.40 g/dLHEMATOCRIT 41.0 %MCV 88.40 fLMCH 26.70 pgMCHC 30.20 g/dLRDW 15.20 %PLATELET COUNT 200.0 x10E3/uLMPV 13.10 fLABSOLUTE NEUTROPHILS 4645 cells/uLABSOLUTE LYMPHOCYTES 2038 cells/uLABSOLUTE MONOCYTES 837 cells/uLABSOLUTE EOSINOPHILS 292 cells/uLABSOLUTE BASOPHILS 87 cells/uLNEUTROPHILS 58.80 %LYMPHOCYTES 25.80 %MONOCYTES 10.60 %EOSINOPHILS 3.70 %BASOPHILS 1.10 %HEPATITIS C ANTIBODY NON-REACTIVETSH 2.83PARATHYROID HORMONE, INTACT 114.0 pg/mLVITAMIN D,25-OH,TOTAL,IA 24.0 ng/mL 06/19/2024 12:00 AM Lower Extremity Exam : PAD Neg Symptoms / Neg Exam 06/19/2024 10:38 AM BP Monitor @home Yes 06/19/2024 10:41 AM SDOH - Unhoused Pablo ROXANNA - Housing Concerns NoSDOH - Utilities NoSDOH - Food Access Concerns (Run Out of Food Now) NoSDOH - History Food Insecurity NoSDOH - Medication Assistance NoSDOH - Health Literacy NoSDOH - Transportation NoSDOH - Safety YesSDOH - Physical Abuse History NoSDOH - Mental Abuse History NoSDOH - Loneliness Score 3 06/19/2024 2:25 PM HEPATITIS A IGM NON- REACTIVEHEPATITIS B SURFACE ANTIGEN NON-REACTIVEHEPATITIS B CORE ANTIBODY (IGM) NON-REACTIVEHEPATITIS C ANTIBODY NON-REACTIVEHEPATITIS A IGM NON-REACTIVEHEPATITIS B SURFACE ANTIGEN NON-REACTIVEHEPATITIS B CORE ANTIBODY (IGM) NON-REACTIVEHEPATITIS C ANTIBODY NON-REACTIVE 07/25/2024 11:54 AM Preliminary Findings Patient had a min HR of 45 bpm, max HR of 177 bpm,Heart rate minimum 45Heart rate maximum 177Heart rate (average) 68Isolated SVE frequency RareIsolated SVE count 908Isolated VE Frequency RareIsolated VE Counts 617VE Couplets Frequency RareVE Couplets Counts 45Enrollment Period Start [id number] Period End [id number] History Of Immunizations Name Date Admin Mfg Name Mfg Code Trade Name Lot# Route Inj Vis Given Vis Pub CVX Influenza 08/23/20 22 Not Entered NE Not Entered Not Entered Not Entered 2021 88 View Only Mod COVID 1 Not Entered NE Not Entered Not Entered Not Entered 2021 207 View Only Mod COVID 1 Not Entered NE Not Entered Not Entered Not Entered 2021 207 View Only Mod COVID 1 Not Entered NE Not Entered Not Entered Not Entered 2021 207 View Only Mod COVID 06/11/20 22 Not Entered NE Not Entered Not Entered Not Entered 2021 207 Prevnar 20 3 Grace velázquezt-Riley le-Praxis WAL PREVNAR 20 Unknown Intramuscular Unknown 11/20/19 23 2021 216 History of Past Illness Name Date of Onset Comments Prediabetes 10/29/2022 01/31/2023-A1c 6 .1 11/08-encouraged adherence to heart healthy diet c attempts at weight loss-labs: A1c10/29/2022- A1C: 6.1 TODAY - Pt not on any T2DM meds. - Advised low carb diet, increase water intake. - Advised pt to monitor BG daily- Will request records and f/u at next visit. - CTM Walker as ambulation aid 10/29/2022 022- Per PE: rollator present. - Will request records and f/u at next visit.- CTM Arthritis 10/29/2022 01/31/2023-per p rior PCP records 08/09: osteoarthritis of knee-admits pain in both knees-ambulating with walker, also cane at home-continue [place] 10-325 mg QID PRN - rxed at OSH-continue gabapentin 300 mg 2 TID - rxed at OSH112/30/2021- Chronic, Site of pain (b/l arms, hips, knees and back.)- Currently managed with: Vicodin 10-325. - Pt prev. followed with pain management (Dr. Goddard). - Will request records and f/u at next visit. - CTM Wears dentures 12/05/2022 11/20/2022-Pt we ars upper dentures -Will continue to monitor Bilateral edema of lower extremity 12/05/2022 11/20/2022 -Per PE: Bilateral edema in both lower extremities -Currently managed with Furosemide 40 mg QD -Will continue to monitor Major depressive disorder, recurrent episode, mild 12/05/2022 12:00:00 AM 12/18/2023- chronic - patialejandro t reports medication was started in 2019 after - reports stable mood- PHQ9: (12/18/2023)- currently managed with buspirone 10 mg BID and duloxetine 30 mg QD - encouraged mood boosting activities - offered support - continue to monitor Atherosclerosis of right low er extremity 12/05/2022 12:00:00 AM 12/18/2023 - chronic - per 11/20/2022 quantaflo: R - 0.880, L - 0.990 - not currently on statin therapy or ASA - encouraged low fat diet and ambulation - continue to monitor Chronic pain of both knees 01/31/202301/31-per prior PCP records 08/09: osteoarthritis of knee-admits pain in both knees-ambulating with walker, also cane at home-continue [place] 10-325 mg QID PRN - rxed at OSH-continue gabapentin 300 mg 2 TID - rxed at [facility]SH [facility] current use of opi ate analgesic 01/31/2023 01/31/2023-for arthritis conrado n in knees-continue [place] 10-325 mg QID PRN - rxed at OSH-continue gabapentin 300 mg TID - rxed at OSH Vitamin D deficiency 01/31/2023 01/31/2023- diagnosis per prior PCP records 08/09-VitD 32 12/10, Phos-PTH 67 12/10-continue Vitamin D3 2000 units QD-labs: VitD Tooth pain 01/31/2023 01/31/2023-admit s tooth pain in R bottom jaw onset ~2 mo ago-currently has all of top teeth and some bottom teeth removed-START Augmentin 875-125 mg BID for 7 days-encouraged to call [email or web address] to get help scheduling with dentist Nonsmoker 01/31/2023 01/31/2023-denie s any prior smoking hx-encouraged continued smoking cessation Bladder incontinence 01/31/2023 01/31/2023- admits occ bladder incontinence, sx improved c current tx-continue oxybutynin chloride 10 mg QD Fall, subsequent encounter 03/07/202303/07- Pt reports 3 recent falls, bruise to the left arm- Pt denies pain at this time- Encouraged pt to keep ambulation aide nearby at all times- Pt will look into getting a call button for herself- CTM Strep throat 03/07/2023 03/07/2023- See PE- Will start pcn vk 500 mg q12 hrs for 10 days- Will f/u at CT Class 3 severe obesity due t o excess calories with serious comorbidity and body mass index (BMI) of 45.0 to 49.9 in adult 05/08/2023 05/08/2023- BMI today i s 46.17, 269 Lbs. - Prev. BMI was 44/61, 260 Lbs. 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 Results: EF 60%, impaired LV relaxation, trace MR, trace TR - per 06/18/2023 labs: GFR 37, Cr 1.490 - per 06/07/2023 labs: GFR 34, Cr 1.580 - per 01/31/2023 labs: GFR 45, Cr 1.270 - currently managed with clonidine 0.2mg BID, furosemide 40mg QD, metoprolol tartrate 50mg BID, and olmesartan 40mg QD - encouraged heart healthy diet with adequate amounts of water - avoid nephrotoxins - encouraged to monitor bp at home - encouraged to continue to f/u with advertising intern in [place], Dr Liz Mandujano with [facility]- patient referred to farm management teacher, encouraged to f/u - continue to monitor Stage 3a chronic kidney disease 05/08/2023 05/08/2023- Chronic - *12/10 GFR: 45 - *12/10 Cr: 1.270 - Continue clonidine 0.2 mg tablet, furosemide 40 mg tablet, metoprolol tartrate 50 mg tablet, and olmesartan 40 mg tablet.- Continue to work to achieve targets with A1c, Blood pressure- Continue to monitor, renal dose medications as needed and avoid nephrotoxic agent- Drink plenty of water daily - f/u and CTM CHF (congestive heart failure) 05/08/2023 0 05/08/2023- Chronic- PCP [facility] from [facility] date 07/26/2022, HPI notes CHF- she was diagnosed with CHF and pulm edema, was treated with diuretics, EF was 65%, was in the hospital in 02/05, seeing cardiology dr mandujano on page [phone]. No echo report found in chart. Pt has risk factors of HTN and morbid obesity. Pt is on furosemide, metoprolol tartrate, and olmesartan per medication list.- Limit sodium intake, increase water intake- Advised increased cardiovascular exercise as tolerated - Monitor your blood pressure daily - f/u and CTM Recurrent falls 12/18/2023 12/18/2023- synchronizer jez - patient explains falls due to brakes on her rollator do not work and at times unable to stop and fall - use of rollator d/t knee pain - currently ambulatory with wheelchair to reduce - encouraged to f/u with insurance to obtain new rollator - encouraged exercise and strength training - encouraged fall precautions - continue to monitor Wheelchair dependent 12/18/2023 12/18/2023- chronic - present in wheelchair d/t issues with rollator walker - encouraged fall precautions - continue to monitor Secondary hyperparathyroidism 06/19/2024 -Chronic-2/2 vit d def and CKD3b- Vit D 24 in 12/11- GFR 34 in 06/09 and 41 in 12/10-encouraged increased water intake.-encouraged pt to avoid nephrotoxic drugs-Will continue to monitor Prediabetes Oct 29 2022 12:09PM Morbid (severe) obesity due to excess calories Oct 29 2022 12:09PM Body mass index [BMI] 45.0-4 9.9, adult Oct 29 2022 12:09PM Walker as ambulation aid Oct 29 2022 12:09PM HTN (hypertension) Oct 29 2022 12:09PM Arthritis Oct 29 2022 12:09PM Arthritis Nov 20 2022 8:38AM Morbid (severe) obesity due to excess calories Nov 20 2022 8:38AM Body mass index [BMI] 45.0-4 9.9, adult Nov 20 2022 8:38AM HTN (hypertension) Nov 20 2022 8:38AM Prediabetes Nov 20 2022 8:38AM Walker as ambulation aid Nov 20 2022 8:38AM Encounter for screening for cardiovascular disorders Nov 20 2022 8:38AM Prevnar 20 Nov 20 2022 2:15PM Annual visit for general [place] lt medical examination with abnormal findings Nov 20 2022 2:15PM Morbid (severe) obesity due to excess calories Nov 20 2022 2:15PM Body mass index [BMI] 40.0-4 4.9, adult Nov 20 2022 2:15PM Wears dentures Nov 20 2022 2:15PM Walker as ambulation aid Nov 20 2022 2:15PM Bilateral edema of lower extremity Nov 20 2022 2: 15PM 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 Nov 20 2022 2:15PM CHF (congestive heart failure) Nov 20 2022 2:15PM Major depressive disorder, recurrent episode, mild Nov 20 2022 2:15PM Atherosclerosis of right low er extremity Nov 20 2022 2:15PM CHF (congestive heart failure) Dec 31 2022 11:17 AM 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 Dec 31 2022 11:17AM Walker as ambulation aid Dec 31 2022 11:17AM Prediabetes Dec 31 2022 11:17AM Morbid (severe) obesity due to excess calories Dec 31 2022 11:17AM Body mass index [BMI] 45.0-4 9.9, adult Dec 31 2022 11:17AM Arthritis Dec 31 2022 11:17AM Drug therapy Jan 31 2023 9:49AM Arthritis Jan 31 2023 9:26AM Atherosclerosis of right low er extremity Jan 31 2023 9:26AM Tooth pain Jan 31 2023 9:26AM Nonsmoker Jan 31 2023 9:26AM Bladder incontinence Jan 31 2023 9:26AM Pain in right knee Jan 31 2023 9:26AM Pain in left knee Jan 31 2023 9:26AM Other chronic pain Jan 31 2023 9:26AM 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 Jan 31 2023 9:26AM Chronic diastolic (congestiv e) heart failure Jan 31 2023 9:26AM Major depressive disorder, recurrent episode, mild Jan 31 2023 9:26AM Prediabetes Jan 31 2023 9:26AM Morbid (severe) obesity due to excess calories Jan 31 2023 9:26AM Body mass index [BMI] 45.0-4 9.9, adult Jan 31 2023 9:26AM [facility] current use of opi ate analgesic Jan 31 2023 9:26AM Vitamin D deficiency Jan 31 2023 9:26AM Preventative health care Jan 31 2023 9:26AM Stage 3b chronic kidney disease Jan 31 2023 9:26 AM Morbid (severe) obesity due to excess calories Mar 07 2023 9:23AM Body mass index [BMI] 40.0-4 4.9, adult Mar 07 2023 9:23AM Pain in right knee Mar 07 2023 9:23AM Pain in left knee Mar 07 2023 9:23AM Other chronic pain Mar 07 2023 9:23AM Hypertensive heart and chron ic kidney disease with heart failure and stage 1 through stage 4 chronic kidney disease, or unspecified chronic kidney disease Mar 07 2023 9:23AM Chronic diastolic (congestiv e) heart failure Mar 07 2023 9:23AM Chronic kidney disease, stage 3a Mar 07 2023 9:2 3AM Strep throat Mar 07 2023 9:23AM Unspecified fall, subsequent encounter Mar 07 2023 9:23AM Hypertensive heart and chron ic kidney disease with heart failure and stage 1 through stage 4 chronic kidney disease, or unspecified chronic kidney disease May 08 2023 9:27AM Chronic diastolic (congestiv e) heart failure May 08 2023 9:27AM Chronic kidney disease, stage 3a May 08 2023 9:2 7AM Walker as ambulation aid May 08 2023 9:27AM Morbid (severe) obesity due to excess calories May 08 2023 9:27AM Body mass index [BMI] 45.0-4 9.9, adult May 08 2023 9:27AM Pain in right knee May 08 2023 9:27AM Pain in left knee May 08 2023 9:27AM Other chronic pain May 08 2023 9:27AM 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 May 08 2023 9:27AM Stage 3a chronic kidney disease May 08 2023 9:27 AM CHF (congestive heart failure) May 08 2023 9:27A M Bilateral edema of lower extremity May 08 2023 9 :27AM Arthritis Jun 07 2023 9:57AM CHF (congestive heart failure) Jun 07 2023 9:57A M Morbid (severe) obesity due to excess calories Jun 07 2023 9:57AM Body mass index [BMI] 45.0-4 9.9, adult Jun 07 2023 9:57AM Hypertensive heart and kidne y disease with congestive heart failure and stage 3a chronic kidney disease Jun 07 2023 9:57AM [facility] current use of opi ate analgesic Jun 07 2023 9:57AM Stage 3a chronic kidney disease Jun 07 2023 9:57 AM Walker as ambulation aid Jun 07 2023 9:57AM Stage 3b chronic kidney disease Jun 07 2023 10:2 8AM Osteoarthritis Jun 07 2023 9:57AM Screening mammogram Jun 07 2023 10:34AM Encounter for drug therapy Jun 17 2023 10:24AM HTN (hypertension) Jun 17 2023 10:24AM Stage 3b chronic kidney disease Jun 24 2023 4:58P M Pain in right knee Sep 06 2023 2:08PM Pain in left knee Sep 06 2023 2:08PM Other chronic pain Sep 06 2023 2:08PM Hypertensive heart and kidne y disease with congestive heart failure and stage 3a chronic kidney disease Dec 18 2023 8:16AM Stage 3a chronic kidney disease Dec 18 2023 8:16 AM Vitamin D deficiency Dec 18 2023 8:16AM Encounter for screening for lipid disorder Dec 18 2023 8:16AM Encounter for drug therapy Dec 18 2023 8:16AM Encounter for screening for other viral diseases Dec 18 2023 8:16AM Encounter for annual general medical examination with abnormal findings in adult Dec 18 2023 9:34AM Arthritis Dec 18 2023 9:34AM CHF (congestive heart failure) Dec 18 2023 9:34A M Pain in right knee Dec 18 2023 9:34AM Pain in left knee Dec 18 2023 9:34AM Other chronic pain Dec 18 2023 9:34AM Morbid (severe) obesity due to excess calories Dec 18 2023 9:34AM Body mass index [BMI] 45.0-4 9.9, adult Dec 18 2023 9:34AM Prediabetes Dec 18 2023 9:34AM Stage 3a chronic kidney disease Dec 18 2023 9:34 AM Atherosclerosis of right low er extremity Dec 18 2023 9:34AM Hypertensive heart and kidne y disease with congestive heart failure and stage 3a chronic kidney disease Dec 18 2023 9:34AM Major depressive disorder, recurrent episode, mild Dec 18 2023 9:34AM Wheelchair dependent Dec 18 2023 9:34AM Recurrent falls Dec 18 2023 9:34AM CHF (congestive heart failure) Jun 19 2024 10:41A M Morbid (severe) obesity due to excess calories Jun 19 2024 10:41AM Body mass index [BMI] 45.0-4 9.9, adult Jun 19 2024 10:41AM Stage 3a chronic kidney disease Jun 19 2024 10:41 AM Vitamin D deficiency Jun 19 2024 10:41AM Atherosclerosis of right low er extremity Jun 19 2024 10:41AM Hypertensive heart and kidne y disease with congestive heart failure and stage 3a chronic kidney disease Jun 19 2024 10:41AM Major depressive disorder, recurrent episode, mild Jun 19 2024 10:41AM Secondary hyperparathyroidism Jun 19 2024 10:41AM Jun 19 2024 11:21AM Encounter for specialized al dical examination Jun 19 2024 10:41AM Drug therapy Jun 19 2024 10:41AM Drug therapy Jun 19 2024 1:32PM CHF (congestive heart failure) Jun 19 2024 1:32PM Morbid (severe) obesity due to excess calories Jun 19 2024 1:32PM Body mass index [BMI] 45.0-4 9.9, adult Jun 19 2024 1:32PM Hypertensive heart and kidne y disease with congestive heart failure and stage 3a chronic kidney disease Jun 19 2024 1:32PM Stage 3b chronic kidney disease Sep 30 2024 2:31 PM Payers Insurance Name Company Name Plan Name Plan Number Policy Number Policy Group Number Start Date [facility]) - [id number] Saturday, 2024 Medicaid - [place] Medicaid - [facility] [id number] N/A Medicare - [place] Medicare Part B - [facility] [id number] S , 2008 [facility]) - [id number] N/A [facility]) - G2315 [id number] N/A [employer] - [id number] Well[employer] No Premium (HMO- POS) [id number] December [employer] - [id number] zzzHumana Gold Plus (HMO) [id number] N/A History of Encounters Visit Date Visit Type Provider 01/15/2025 In Office Visit Visits [facility] 12/16/2024 In Office Visit Visits [facility] 10/21/2024 In Office Visit Visits [facility] 08/20/2024 In Office Visit Visits [facility] 07/16/2024 In Office Visit Visits [facility] 06/19/2024 In Office Visit Kaitlin jaimes NP 06/11/2024 In Office Visit Visits [facility] 04/30/2024 In Office Visit Visits [facility] 03/26/2024 In Office Visit Visits [facility] 02/21/2024 In Office Visit Visits [facility] 01/09/2024 In Office Visit [facility]its [facility] 12/18/2023 In Office Visit Erica Wong NP 11/22/2023 In Office Visit [facility] 09/06/2023 In Office Visit Yanira jameson ASSISTANT HOUSEKEEPING MANAGER 06/17/2023 In Office Visit [facility] 06/07/2023 In Office Visit Erica Wong NP 05/08/2023 In Office Visit Erica Wong NP 03/12/2023 In Office Visit Visits [facility] her 03/07/2023 In Office Visit Erica Wong NP 01/31/2023 In Office Visit Kamala Pereira MD 12/31/2022 In Office Visit Erica Wong NP 11/20/2022 In Office Visit Erica Wong NP 10/29/2022 In Office Visit Erica Wong NP
== END 2025-02-19 13:46 | disposition home or self-care (01) ==
PROVIDERS: Visit Provider Physician Assistant Surgical
DX: M19.012 Primary osteoarthritis, left shoulder (principal); M19.011 Primary osteoarthritis, right shoulder
CPT/HCPCS: 20610; 77002; J1010; J2003; Q9966

== ENCOUNTER 2025-07-08 13:54 | Outpatient (CLI) | payer MEDICARE, MEDICAID, SELFPAY ==
--- NOTE | ~2025-07-08 | XR_ITS ---
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 The procedure including the risks, benefits, and alternatives was discussed with the patient. Risks discussed included bleeding and infection. The patient understood the risks and agreed to proceed. Attention was first turned to the right shoulder. The skin overlying the right glenohumeral joint was prepped and draped in usual sterile fashion. Anesthetic was administered with 1% lidocaine subcutaneously. A 22 G needle was advanced under fluoroscopic guidance into the joint. Injection of 1 mL of Omnipaque 240 confirmed intra-articular position of the needle. Subsequently, injectate consisting of 5 mL of a 4:1 mixture of 1% lidocaine: 80 mg/mL Depo- Medrol for a total dosage of 80 mg Depo-Medrol was instilled. Washout of contrast was seen confirming intra-articular administration. The needle was removed and the entry site was cleaned and dressed. Attention was entered to the contralateral left shoulder. The skin overlying the left glenohumeral joint was prepped and draped in usual sterile fashion. Anesthetic was administered with 1% lidocaine subcutaneously. A 22 G needle was advanced under fluoroscopic guidance into the joint. Injection of 1 mL of Omnipaque 240 confirmed intra-articular position of the needle. Subsequently, injectate consisting of 5 mL of a 4:1 mixture of 1% lidocaine: 80 mg/mL Depo- Medrol for a total dosage of 80 mg Depo-Medrol was instilled. Washout of contrast was seen confirming intra-articular administration. The needle was removed and the entry site was cleaned and dressed. There were no immediate complications. Fluoroscopy exposure time for the combined procedures was 0.3 minutes. The total number of images was 5. Total DAP was 1.4 Gycm^2. FINDINGS: Real-time fluoroscopy demonstrates the needle and contrast first in the right glenohumeral joint and subsequently in the left glenohumeral joint. Patient's pain prior to procedure:07/28. Patient's pain following the procedure: 12/28. IMPRESSION: 1. Successful right glenohumeral joint injection of local anesthetic and steroid with decrease in the patient's presenting pain. 2. Successful left glenohumeral joint injection of local anesthetic and steroid with decrease in the patient's presenting pain. Reviewed, dictated and finalized at location A. IMPRESSION: 1. Successful right glenohumeral joint injection of local anesthetic and steroi d with decrease in the patient's presenting pain. 2. Successful left glenohumeral joint injection of local anesthetic and steroid with decrease in the patient's presenting pain.
--- OUTSIDE RECORDS SUMMARY | 2025-07-08 14:11 | XMS_ITS | Clinical Summary ---
Author Organization [facility] Address [address] [place] [address] Care Team Providers Care Brake Lining Finisher Asbestos Name Role Phone Gadiel Vegas MD Primary Care Provider [phone] Source Comments [facility],non-owned Affiliates and Associated Physician Practices is amultiple site organization consisting of ambulatory clinics and hospital sitesin [place], [place], [place] and [place]. This disclosure is being madepursuant to the Care Everywhere program and may not contain all information available regarding this patient. Last updated 18.[facility] Allergies No known active allergies Medications * Be aware that medications may not be up to date on this document. Alwaysverify current medications with the patient. 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 Social History Tobacco Use Types Packs/Day Years Used Date Smoking Tobacco: Never Smokeless Tobacco: Never Alcohol Use Standard Drinks/Week Comments No 0 (1 standard drink = 0.6 oz pur e alcohol) Comments Unknown Sex and Gender Information Value Date Recorded Sex Assigned at Not on file Legal Sex Female 2:06 PM CDT Gender Identity Not on file Sexual Orientation [...] 9:24 AM CDT Height 160 cm (5' 3) 09/11/2017 9:24 AM CDT Body Mass Index 59.45 09/11/2017 9:24 AM CDT Plan of Treatment Health Maintenance Due Date Last Done Comments BONE DENSITY TESTING 1950 COLOGUARD (AGES 45-75) - COLON CA SCREENING 1949 CT COLONOGRAPHY - COLON CA SCREENING 1950 FIT - COLON CA SCREENING 1949 FLEX SIG - COLON CA SCREENING 1949 LIPID TESTING 1950 MAMMOGRAM 1950 HEPATITIS C SCREENING 07/03/1967 DTAP/TDAP/TD VACCINES (1 - Tdap) 1968 PNEUMOCOCCAL VACCINE 50+ (1 of 1 - PCV) 1999 ZOSTER VACCINE (1 of 2) 1999 SCREENING FOR DIABETES 08/14/2020 7, 08/14/2017, 08/13/2017, Additional history exists Respiratory Syncytial Virus (RSV) Vaccine Pt: or over 60 yrs (1 - 1-dose 75+ series) 2024 COVID-19 VACCINE (1 - 2023- season) 2024 DEPRESSION SCREENING 11/18/2024 COLON MONITORING 06/27/2025 06/27/2015 COLONOSCOPY - COLON CA SCREENING 06/27/2025 06/27/2015 Colorectal Cancer Screening 06/27/2025 INFLUENZA VACCINE (#1) 2025 HEPATITIS B VACCINE Aged Out No longe [...] >60 mL/min/1.7 3m2 08/14/2017 4:46 AM CDT [facility] Blood BLOOD SPECIMEN / Unknown Venipuncture / Unknown 08/14/2017 3:20 AM CDT 08/14/2017 4:02 AM CDT us Delmy Vail Shaw NETWORK SECURITY OFFICER-APARTMENT MAINTENANCE MANAGER LAB - CHEMISTRY RAIN CENTENO Final Result [facility] [address] [place] [address] * COLONOSCOPY (06/27/2015) us Rey El MD GENERIC SURGICAL HISTORY Gisele l Result from Last 3 Months or Most Recently Relevant to Health Maintenance Insurance MEDICARE MEDICAID - [place] Advance Directives * Full Code (Latest Code Status on File) Date Activated Date Inactivated Comments 08/12/2017 7:56 PM 08/14/2017 10:59 AM Care Teams Brake Lining Finisher Asbestos Relationship Specialty Start Date End Date Gadiel Vegas MD [address] [place] [address] PCP - General Internal Medicine 03/27/17
--- OUTSIDE RECORDS SUMMARY | 2025-07-08 14:11 | XMS_ITS | Clinical Summary ---
Author Organization [facility] Address [address] [place] [id number] Care Team Providers Care Hunting Sales Leader Name Role Phone Kristy De Los Santos Primary Care Provider [phone] Allergies No known active allergies Medications busPIRone [...] Comments Breast Cancer Screening 1950 Pneumococcal Vaccine: 50+ Ye ars (1 of 2 - PCV) 1968 Colorectal Cancer Screening: Annual FOBT 1998 Colorectal Cancer Screening: Colonoscopy 1998 Colorectal Cancer Screening: Sigmoidoscopy 1998 Influenza Vaccine (#1) 2025 Hepatitis B Vaccine Aged Out No longe r eligible based on patient's age to complete this topic Insurance Human [employer] Teams Hunting Sales Leader Relationship Specialty Start Date End Date Kristy De Los Santos [address] [place] [address] PCP - General 06/07/23
== END 2025-07-08 13:55 | disposition home or self-care (01) ==
LOC: ANHIMG 13:58
PROVIDERS: PCP Physician Assistant Surgical; Visit Provider Physician Assistant Surgical
DX: M25.512 Pain in left shoulder (principal); M25.511 Pain in right shoulder
CPT/HCPCS: 20610; 77002; J1010; J2003; Q9966